=== PATIENT | male | born 1945 | race Caucasian/White ===

== ENCOUNTER → 2019-08-21 | Outpatient (CLI) | payer OTHER ==
[~2019-08-21] MED LIST: ALEVE220 M1 PO; ASPIRIN81 M2 PO; CARDIZEM CD 18180 M3 PO; CENTRUM SILVER1 EAC4 PO; COLACE100 MG PO; COUMADIN 1MG TAB1 M1 PO; ELIQUIS5 MG PO; FISH OIL 1,2001 EAC3 PO; FISH OIL SOFTG1 EACH PO; HYDROCODON-ACE1 EAC7 PO; JUICE PLUS PO; LIPITOR40 MG PO; MULTIVITAMINS PO; ROBAXIN 750 MG750 M1 PO; TOPROL XL100 MG PO; [UNRECOGNIZED DRUG - OTHER] PO
== END ==
LOC: CAT 11:48
DX: Z13.6 Encounter for screening for cardiovascular disorders (principal); I25.10 Atherosclerotic heart disease of native coronary artery without angina pectoris; E78.00 Pure hypercholesterolemia, unspecified

== ENCOUNTER → 2019-08-21 | Outpatient (CLI) | payer OTHER, MEDICARE | LOC: SJCVC 10:02 | PROVIDERS: ATTEND Internal Medicine Cardiovascular Disease | DX: R94.31 Abnormal electrocardiogram [ECG] [EKG] (principal); R93.1 Abnormal findings on diagnostic imaging of heart and coronary circulation; I26.99 Other pulmonary embolism without acute cor pulmonale; C91.40 Hairy cell leukemia not having achieved remission; D68.59 Other primary thrombophilia; I25.10 Atherosclerotic heart disease of native coronary artery without angina pectoris; E78.5 Hyperlipidemia, unspecified; Z86.718 Personal history of other venous thrombosis and embolism; Z79.899 Other long term (current) drug therapy ==

== ENCOUNTER → 2020-04-12 | Outpatient (CLI) | payer OTHER, MEDICARE | LOC: SJCVCIMAG 09:54 | PROVIDERS: ATTEND Internal Medicine Cardiovascular Disease | DX: I10 Essential (primary) hypertension (principal); I25.10 Atherosclerotic heart disease of native coronary artery without angina pectoris; E78.5 Hyperlipidemia, unspecified; Z79.899 Other long term (current) drug therapy; Z86.711 Personal history of pulmonary embolism ==

== ENCOUNTER 2020-04-24 16:41 | Emergency (ER) | payer OTHER, MEDICARE ==
[~2020-04-24] VITALS: Ht 190.5 cm; Wt 108.0 kg
[2020-04-24 17:29] LABS: BASOPHILS 0.2 % (0.0-2.0); EOSINOPHILS 1.2 % (0.0-3.0); HEMATOCRIT 46.3 % (42.0-52.0); HEMOGLOBIN 15.5 gm/dL (14.0-18.0); MCH 30.9 pg (26.0-34.0); MCHC 33.5 g/dL (28.0-37.0); MCV 92.4 fL (80.0-100.0); MONOCYTES 7.5 % (1.0-8.0); PLATELET COUNT 79 thou/uL (150-400); POLYS 88.1 % (36.0-66.0); RBC 5.01 mil/uL (4.50-6.00); RDW 13.4 % (10.5-14.5); WBC 6.8 thou/uL (4.0-11.0)
[2020-04-24 17:34] LABS: URINE BILIRUBIN 1+ (Negative); URINE BLOOD TRACE (Negative); URINE CLARITY CLEAR; URINE COLOR YELLOW; URINE GLUCOSE-RANDOM* NEGATIVE (Negative); URINE KETONES TRACE (Negative); URINE LEUKOCYTES-REFLEX TRACE (Negative); URINE NITRITE-REFLEX NEGATIVE (Negative); URINE PROTEIN (DIPSTICK) 1+ (Negative)
[2020-04-24 17:36] LABS: ICTOTEST (BILI CONFIRMATORY) Positive (Negative)
[2020-04-24 17:43] LABS: MUCUS 4-6 Moderate strn/LPF (None Seen); SQUAMOUS 0-3 Few /LPF (0-3)
[2020-04-24 17:44] LABS: BACTERIA-REFLEX None Seen /HPF (None Seen); CASTS None Seen /LPF (None Seen); CRYSTALS None Seen /LPF (None Seen); URINE RBC 3-10 Few /HPF (0-2); URINE WBC-REFLEX 0-5 Rare /HPF (0-5)
[2020-04-24 17:44] LABS: CALCIUM 8.9 mg/dL (8.5-10.1); CREATININE 1.9 mg/dL (0.7-1.3)
[2020-04-24 17:50] LABS: ALBUMIN 3.2 g/dL (3.4-5.0); TOTAL BILIRUBIN 2.1 mg/dL (0.2-1.0); TOTAL PROTEIN 5.9 g/dL (6.4-8.2)
[2020-04-24] MEDS ORDERED: CLEOCIN HCL150 M1 PO (18:14)
[2020-04-24 18:49] VITALS: BP 117/68
== END 2020-04-24 18:49 | disposition home or self-care (01) ==
LOC: ER 16:41
PROVIDERS: Emergency Medicine
DX: R50.9 Fever, unspecified (principal); Z86.718 Personal history of other venous thrombosis and embolism; Z90.89 Acquired absence of other organs; Z79.899 Other long term (current) drug therapy; Z79.82 Long term (current) use of aspirin; Z98.890 Other specified postprocedural states

== ENCOUNTER → 2020-08-04 | Outpatient (CLI) | payer OTHER, MEDICARE ==
[~2020-08-04] MED LIST changes: +CLEOCIN HCL150 M1 PO
== END ==
LOC: SJCVC 10:08
PROVIDERS: ATTEND Internal Medicine Cardiovascular Disease
DX: E78.00 Pure hypercholesterolemia, unspecified (principal); I10 Essential (primary) hypertension; Z86.718 Personal history of other venous thrombosis and embolism; Z79.899 Other long term (current) drug therapy; M19.90 Unspecified osteoarthritis, unspecified site

== ENCOUNTER → 2021-01-10 | Outpatient (CLI) | payer OTHER, MEDICARE | LOC: SJCVC 10:56 | PROVIDERS: ATTEND Internal Medicine Cardiovascular Disease | DX: R93.1 Abnormal findings on diagnostic imaging of heart and coronary circulation (principal); I10 Essential (primary) hypertension; E78.00 Pure hypercholesterolemia, unspecified; R09.89 Other specified symptoms and signs involving the circulatory and respiratory systems; Z86.711 Personal history of pulmonary embolism; Z86.718 Personal history of other venous thrombosis and embolism; Z88.2 Allergy status to sulfonamides; Z88.8 Allergy status to other drugs, medicaments and biological substances; Z82.49 Family history of ischemic heart disease and other diseases of the circulatory system; Z79.899 Other long term (current) drug therapy ==